=== PATIENT | female | born 1960 | race Caucasian/White ===

== ENCOUNTER 2018-09-10 10:54 | Day surgery (SDC) | payer BC ==
[~2018-09-10 10:54] MED LIST: DEXAMETHASONE SOD PHOSPHATE INJ 4 MG/1 ML VIAL ONE; KETOROLAC TROMETHAMINE 60 MG/2 ML SDV ONE; ONDANSETRON HCL INJ/PF 4 MG/2 ML SDV ONE; PHENYLEPHRINE HCL INJ/PF 10 MG/1 ML SDV ONE; ROCURONIUM BROMIDE INJ 50 MG/5 ML VIAL IV ONE
[2018-09-10] MEDS ORDERED: FENTANYL CITRATE INJ/PF 100 MCG/2 ML AMPUL ONE (11:30)
[2018-09-10] MEDS ORDERED: MIDAZOLAM 2 MG/2 ML INJ ONE (11:30)
[2018-09-10] MEDS ORDERED: LIDOCAINE 2% INJ-PF (20 MG/ML) 10 ML AMPUL ONE (11:30)
[2018-09-10] MEDS ORDERED: PROPOFOL INJ 200 MG/20 ML VIAL IV ONE (11:31)
[2018-09-10] MEDS ORDERED: ACETAMINOPHEN 1,000 MG/100 ML RTUPB IV ONE (11:31)
[2018-09-10] MEDS: CEFAZOLIN SODIUM 2 GM in DEXTROSE 5%-WATER 100 ML IV PRN ×2 (11:50→12:50)
[2018-09-10] MEDS ORDERED: BUPIVACAINE HCL 0.5 % INJ/PF 30 ML SDV INJ ONE (12:57)
[2018-09-10] MEDS ORDERED: MORPHINE SULFATE 10 MG/ML INJ IV PRN ×2 (13:38→15:15)
[2018-09-10] MEDS ORDERED: PROMETHAZINE HCL INJ 25 MG/1 ML VIAL IV PRN (13:38)
[2018-09-10] MEDS ORDERED: FENTANYL CITRATE INJ/PF 100 MCG/2 ML AMPUL IV PRN ×3 (13:38)
[2018-09-10] MEDS ORDERED: MEPERIDINE HCL/PF INJ 25 MG/1 ML DISP.SYRIN IV PRN (13:38)
[2018-09-10] MEDS ORDERED: DIPHENHYDRAMINE HCL 50 MG/ML VIAL IV PRN (13:38)
--- NOTE | 2018-09-10 14:47 | RADIOLOGY REPORT (SQ) ---
EXAM DESCRIPTION: NO CHG FLUORO; WRIST RIGHT 3 VIEWS COMPLETED DATE/TIME: 09/10/2018 2:34 pm REASON FOR STUDY: RT WRIST ORIF W/ SCAPHOID BONE GRAFT COMPARISON: None. FLUOROSCOPY TIME: 0.6 minutes 6 Images saved to PACS LIMITATIONS: None. PROCEDURE: ORIF scaphoid fracture with bone graft. FINDINGS: Images obtained from fluoro document placement of a long cannulated screw in the scaphoid. IMPRESSION: ORIF scaphoid fracture with bone graft. Refer to operative note for further information . COMMENT: PQRS 6045F: Fluoroscopy time of the procedure is documented in the report. TECHNICAL DOCUMENTATION: JOB ID: [id number] [email or web address]- All Rights Reserved Reading location - IP/workstation name: [email or web address]
--- NOTE | 2018-09-10 14:47 | RADIOLOGY REPORT (SQ) ---
EXAM DESCRIPTION: NO CHG FLUORO; WRIST RIGHT 3 VIEWS COMPLETED DATE/TIME: 09/10/2018 2:34 pm REASON FOR STUDY: RT WRIST ORIF W/ SCAPHOID BONE GRAFT COMPARISON: None. FLUOROSCOPY TIME: 0.6 minutes 6 Images saved to PACS LIMITATIONS: None. PROCEDURE: ORIF scaphoid fracture with bone graft. FINDINGS: Images obtained from fluoro document placement of a long cannulated screw in the scaphoid. IMPRESSION: ORIF scaphoid fracture with bone graft. Refer to operative note for further information . COMMENT: PQRS 6045F: Fluoroscopy time of the procedure is documented in the report. TECHNICAL DOCUMENTATION: JOB ID: [id number] [employer]- All Rights Reserved Reading location - IP/workstation name: [email or web address]
[2018-09-10] MEDS ORDERED: ONDANSETRON HCL INJ/PF 4 MG/2 ML SDV IV PRN (14:48)
[2018-09-10] MEDS ORDERED: HYDROMORPHONE HCL INJ/PF 2 MG/ML AMPULE IV PRN (14:48)
--- NOTE | 2018-09-10 15:00 | Discharge Summary ---
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 Denis Raymundo @ [facility] for Surgery to be seen in 10-14 days or as scheduled [place]: [place]: [place]: Ice and elevate Keep splint clean/dry/intact. If your fingers become numb please unwrap the Moreno wrap but leave the splint in place, if the sensation does not return within 30 minutes please return to the emergency department. May begin finger range of motion attempting to make full fist. Please use ibuprofen (Motrin or Advil) 600-800 mg every 8 hours as needed for pain or fever DO NOT TAKE w/ TORADOL may use once TORADOL complete. You may also use acetaminophen (Tylenol) 1000 mg every 4-6 hours as needed for pain or fever. Please be aware that many medications contain acetaminophen, do not exceed a total of 1000 mg of acetaminophen every 6 hours. If ibuprofen and acetaminophen are not sufficient for your pain you may take the Percocet/[facility]. Please be aware that the Percocet/[facility] does contain Tylenol. Stool softener of choice when on pain medication. Prescriptions: Oxycodone HCl [Oxycontin Sr 10 mg Tablet] 10 mg PO BID PRN #10 tab.sr.12h PRN Reason: Oxycodone HCl/Acetaminophen [Percocet 7.5-325 mg Tablet] 1 each PO Q6 PRN #25 tablet PRN Reason: Referrals: MOSHE RENTERIA DO [Primary Care Provider] - DENIS RAYMUNDO DO [ACTIVE STAFF] - Respiratory Treatments at Home: Deep Breathing/Coughing Discharge Activity: No Lifting Over 10 Pounds, No Lifting/Push/Pulling Report the Following to Your Physician Immediately: Fever over 101 Degrees, Unusual Bleeding, Redness, Swelling, Warmth, Increased Soreness
[2018-09-10] MEDS ORDERED: MORPHINE SULFATE 10 MG/ML INJ ONE (15:02)
--- NOTE | 2018-09-10 15:10 | Operative Report ---
Operative Report DATE OF SURGERY: 09/10/18 PREOPERATIVE DIAGNOSIS: Right scaphoid avascular necrosis POSTOPERATIVE DIAGNOSIS: Same OPERATION: ORIF right scaphoid with placement of 1 2 ICSRA vascularized bone grafting SURGEON: EMMANUELLE RAYMUNDO ANESTHESIA: GA COMPLICATIONS: None ESTIMATED BLOOD LOSS: Minimal PROCEDURE: Indication for above procedure: 58-year-old female who sustained a fall in September. Patient continued to have discomfort along the radial aspect of her wrist. Given negative radiographs MRI was performed demonstrating scaphoid fracture. She was then treated conservatively with a thumb spica brace but continued to have discomfort. Repeat MRI was then performed demonstrating persistent signal within the scaphoid consistent with AVN. She was then sent to me at which point I obtained a CT scan to further evaluate osseous abnormality CT scan demonstrated possible healing of previous fracture but persistent sclerosis consistent with AVN. Findings were consistent with possible traumatic fracture with underlying AVN however Preisers disease were made within the differential diagnosis. I discussed treatment options with the patient in the office and in the preoperative area which includes observation with risk of developing scaphoid necrosis advanced collapse versus operative intervention including possible vascularized bone graft. I also discussed depending on intraoperative findings if there is advanced degenerative changes patient would likely benefit from initial midcarpal arthrodesis as opposed to attempted vascularized bone graft. After discussing these options the decision was made to proceed with operative intervention with initial plan being vascularized bone graft and backup plan being midcarpal arthrodesis. Patient understands risks and benefits of surgery including prognosis, expectations specifically decreased range of motion. Patient verbalized understanding consented for the procedure. Procedure In Detail: Patient was seen and evaluated in the preoperative holding area. The RIGHT upper extremity was initialized and marked. Patient received 2g of Ancef IV for bacterial prophylaxis. Patient was taken back to the operative room where transferred to the operative table and placed under general anesthesia. Once they were adequately anesthetized a nonsterile tourniquet was placed on the upper extremity. A surgical team debriefing was performed ensuring all instrumentation was available, the surgical procedure was discussed with possible concerns reviewed. The upper extremity was prepped with chlorhexidine and alcohol and draped in a sterile fashion. A timeout was done identifying correct patient, procedure and extremity everyone in attendance agree with this and verbalized no concerns. The extremity was elevated the tourniquet was inflated to 250 mmHg. Curvilinear skin incision was made beginning along the anatomic snuffbox extending radially towards Hal's tubercle. Blunt dissection was performed. The superficial radial nerve and cephalic vein were identified and retracted. The interval between the first and second dorsal compartments was localized in the pedicle for the IC MARNI vascularized bone graft was visualized. A portion of the second and first dorsal compartments was released. The pedicle of the IC MARNI was then followed distally as it branched off the radial artery. A T-shaped capsulotomy was made proximal to the scaphoid. Scaphoid was then identified. There was intact cartilage No definitive fracture line however with gentle pressure utilizing a probe the proximal fracture line was identified. There was necrosis throughout the proximal pole with sclerosis along the distal pole. The area was then debrided with a small curette and a rondure until normal-appearing bone was visualized. The scapholunate ligament remained intact without evidence of abnormality. A tenaculum was placed around the scaphoid to maintain alignment and a K wire for a micro-Acutrak screw was placed slightly ulnar, volar from the central axis and perpendicular to the fracture site. C-arm fluoroscopy was obtained confirming appropriate placement of the screw. A 16 mm micro-Acutrak screw was then placed obtaining fixation of the nonunion site. Under direct visualization the Acutrak screw was countersunk to avoid postoperative irritation at the articular surface Under C arm fluoroscopy 1 cm proximal to the radial styloid was identified where the pedicle inserted into the radius. The defect remaining dorsally along the scaphoid was then measured. The appropriate size bone graft was then marked out with a 0.045 K wire. The osteotomy was completed radially, ulnarly and proximally with a [place] elevator the periosteum was elevated along with a cuff of tissue which contained the pedicle. With an osteotome the bone graft was then completed. The bone graft was carefully elevated from the distal radius. The pedicle was followed once again distally from its origin at the radial artery. Cancellus bone was then removed from the bone graft harvest site. Wound was irrigated with normal saline the defect was filled with Vitoss s ynthetic bone graft. The vascularized bone graft was then transferred below the EPL, ECRL/ECRB. It adequately transferred to the proximal pole of the scaphoid and defect. Wound was then copiously irrigated with normal saline. The cancellus bone graft was packed into the defect. A Arthrex Helen anchor was then placed along the dorsal third of the scaphoid. The vascularized bone graft was then inset into the trough and press-fit into position. This was then further secured with horizontal mattress suture through the periosteum and secured to avoid impingement of the pedicle. With wrist range of motion there is no evidence of graft impingement along the distal radius and adequate fixation. Capsulotomy was closed remaining 3-0 FiberWire suture. The interval between the first and second dorsal compartments was loosely reapproximated with 3-0 Vicryl avoiding strangulation or impingement of the extensor tendons. Tourniquet was then deflated. Any peripheral bleeding was controlled with bipolar cautery into the wound was dry. Subcutaneous tissues were closed with interrupted 4-0 Monocryl suture. Skin was closed with running subcuticular 4-0 Monocryl reinforced with Dermabond and Steri-Strips. 30 cc of 0.5% bupivacaine without epinephrine was injected for postoperative pain control. Patient was placed in a thumb spica fiberglass splint. Sponge counts, instrument counts, needle counts were correct. Patient was then awoken from anesthesia. Transferred from the operating room table to the operating room stretcher. There was no intraoperative complications patient tolerated procedure well stable to PACU. Postoperative plan: Patient will follow in the office in 2 weeks at which point we will obtain radiographs including scaphoid view. Patient will be transition to thumb spica cast and started on bone stimulator.
[2018-09-10 17:05] VITALS: BP 115/72
== END 2018-09-10 16:55 | disposition home or self-care (01) ==
LOC: OROUT 10:54
PROVIDERS: ATTEND Orthopaedic Surgery
DX: M87.037 Idiopathic aseptic necrosis of right carpus (principal); S62.001A Unspecified fracture of navicular [scaphoid] bone of right wrist, initial encounter for closed fracture; W19.XXXA Unspecified fall, initial encounter; M25.531 Pain in right wrist; E78.00 Pure hypercholesterolemia, unspecified; E05.90 Thyrotoxicosis, unspecified without thyrotoxic crisis or storm; E55.9 Vitamin D deficiency, unspecified; M81.0 Age-related osteoporosis without current pathological fracture; F17.210 Nicotine dependence, cigarettes, uncomplicated; Z79.899 Other long term (current) drug therapy; Z01.818 Encounter for other preprocedural examination
CPT/HCPCS: 73110; 25628; C1769; J2250; J0690; J3490 ×2; J1100; J1885; J3010; J2270; J2370; J2405; J2704; J0131; 01830